=== PATIENT | female | born 1995 | race Caucasian/White ===

== ENCOUNTER 2016-11-18 15:28 | Observation (INO) | payer OTHER ==
[~2016-11-18] VITALS: Ht 160 cm; Wt 80.0 kg
[2016-11-18 16:00] LABS: BASO % 0.4 % (0.1-1.2); EOS # 0.4 10_X3_uL (0.0-0.4); EOS % 4.3 % (0.7-5.8); GRAN # 5.7 10_X3_uL (1.6-6.1); GRAN % 66.7 % (34.0-71.1); HEMATOCRIT 42.8 % (34-45); HEMOGLOBIN 14.9 g/dL (11.2-15.7); LYMPH % 23.6 % (19.3-51.7); MEAN CORPUSCULAR HGB CONC 34.8 g/dL (32.0-36.0); MEAN CORPUSCULAR VOLUME 86.1 fL (79-95); MEAN PLATELET VOLUME 10.6 fl (7.5-11.5); MONO # 0.4 10_X3_uL (0.2-0.9); PLATELET COUNT 238 x10_3/uL (182-369); RED BLOOD COUNT 4.97 x10_6/uL (3.9-5.2); RED CELL DISTRIBUTION WIDTH 13.5 % (11.7-14.4); WHITE BLOOD COUNT 8.5 x10_3/uL (4.0-10.0)
[2016-11-18 16:15] LABS: BLOOD UREA NITROGEN 10 mg/dL (7-18); CALCIUM 9.2 mg/dL (8.7-10.7); CARBON DIOXIDE 23 mmol/L (21-32); CREATININE 0.7 mg/dL (0.6-1.3); GLUCOSE,RANDOM 107 mg/dL (70-99); POTASSIUM 3.9 mmol/L (3.5-5.1); SODIUM 137 mmol/L (136-145)
[2016-11-19 07:04] LABS: HEMOGLOBIN 14.8 g/dL (11.2-15.7); MEAN CORPUSCULAR HEMOGLOBIN 29.9 pg (27.0-33.0); MEAN CORPUSCULAR HGB CONC 34.4 g/dL (32.0-36.0); MEAN CORPUSCULAR VOLUME 86.9 fL (79-95); MEAN PLATELET VOLUME 11.3 fl (7.5-11.5); RED BLOOD COUNT 4.95 x10_6/uL (3.9-5.2); RED CELL DISTRIBUTION WIDTH 13.9 % (11.7-14.4); WHITE BLOOD COUNT 10.7 x10_3/uL (4.0-10.0)
[2016-11-19 07:14] LABS: BLOOD UREA NITROGEN 16 mg/dL (7-18); CALCIUM 9.4 mg/dL (8.7-10.7); CARBON DIOXIDE 22 mmol/L (21-32); CREATININE 0.6 mg/dL (0.6-1.3); GLUCOSE,RANDOM 93 mg/dL (70-99); SODIUM 139 mmol/L (136-145)
[2016-11-19 10:55] LABS: URINE BILIRUBIN NEGATIVE (NEGATIVE); URINE BLOOD NEGATIVE (NEGATIVE); URINE GLUCOSE (UA) NORMAL (NORMAL); URINE KETONE NEGATIVE (NEGATIVE); URINE LEUKOCYTE ESTERASE TRACE (NEGATIVE); URINE NITRATE NEGATIVE (NEGATIVE); URINE PROTEIN TRACE (NEGATIVE)
[2016-11-19 11:16] LABS: URINE RBC 0-5 /[HPF] (0-2)
[2016-11-19 11:17] LABS: URINE AMORPHOUS SEDIMENT 2+; URINE BACTERIA TRACE (NONE SEEN); URINE MUCUS TRACE; URINE SQUAMOUS EPITHELIAL CELL 0-10 /[HPF] (NONE SEEN); URINE WBC 0-5 /[HPF] (0-5); URINE YEAST FEW (NONE SEEN)
== END 2016-11-19 12:28 | disposition home or self-care (01) ==
LOC: ER 15:28 → MS 17:00
PROVIDERS: General Practice; ADMIT Family Medicine
DX: R55 Syncope and collapse (principal); R42 Dizziness and giddiness; R20.0 Anesthesia of skin; W18.2XXA Fall in (into) shower or empty bathtub, initial encounter; Y92.002 Bathroom of unspecified non-institutional (private) residence as the place of occurrence of the external cause; F17.210 Nicotine dependence, cigarettes, uncomplicated; Z88.0 Allergy status to penicillin
CPT/HCPCS: 36415; 70450; 80048; 80307; 81001; 81025; 85025; 93005; 93041; 99070; 99285-25; G0378